=== PATIENT | male | born 1940 | race Caucasian/White ===

== ENCOUNTER 2018-05-01 08:24 | Inpatient (IN) | payer MEDICARE, MEDICAID ==
[~2018-05-01] VITALS: Ht 190.5 cm; Wt 84.8 kg
[2018-05-01] MEDS ORDERED: SODIUM CHLORIDE 0.9% 1,000 ML IV ONE (08:59)
[2018-05-01] MEDS ORDERED: LORAZEPAM 2MG/ML CPJ IV STA (08:59)
[2018-05-01 09:43] LABS: BASOPHILS % 0.4 % (0.0-2.0); EOSINOPHILS % 0.9 % (0.0-5.0); HEMATOCRIT. 44.1 % (42.0-52.0); HEMOGLOBIN. 14.9 g/dL (14.0-18.0); LYMPHOCYTES % 9.4 % (20.0-50.0); MEAN CORPUSCULAR VOLUME 91.6 fL (80.0-94.0); MEAN PLATELET VOLUME 7.9 fl (7.4-10.4); MONOCYTES % 10.6 % (2.0-8.0); NEUTROPHILS % 78.7 % (40.0-76.0); PLATELET 109 x1000/uL (130-400); RED BLOOD CELL COUNT 4.82 mill/uL (4.7-6.1); RED CELL DISTRIBUTION WIDTH 15.3 % (11.6-14.6)
[2018-05-01 09:49] LABS: CHLORIDE 96 mEq/L (98-107)
[2018-05-01 09:53] LABS: ETHANOL BLOOD < 10 mg/dL
[2018-05-01] MEDS ORDERED: DIPHENHYDRAMINE 25MG CAPSULE PO ONE (10:15)
[2018-05-01] MEDS ORDERED: DOCUSATE SODIUM 100MG CAPSULE PO PRN (12:45)
[2018-05-01] MEDS ORDERED: MAGNESIUM/ALUMINUM HYDROXIDE/SIMETHICONE 30ML UDC PO PRN (12:45)
[2018-05-01] MEDS ORDERED: IPRATROPIUM/ALBUTEROL 0.5-3(2.5)MG/3ML NEB INH PRN (12:45)
[2018-05-01] MEDS ORDERED: GUAIFENESIN 200MG/10ML SUGAR FREE UDC PO PRN (12:45)
[2018-05-01] MEDS ORDERED: ONDANSETRON HCL 4MG/2ML INJ IV PRN (12:45)
[2018-05-01] MEDS ORDERED: MVI, ADULT NO.1 10 ML, FOLIC ACID 1 MG in SODIUM CHLORIDE 0.9% 1,000 ML IV NR ×3 (16:30)
[2018-05-01] MEDS ORDERED: THIAMINE HCL 100MG TABLET PO NR (16:30)
[2018-05-01 16:46] LABS: FOLIC ACID (FOLATE) SERUM 16.3 ng/mL (>5.38)
[2018-05-01 19:54] LABS: CLARITY URINE CLOUDY (CLEAR); COLOR URINE DARK YELLOW (YELLOW); KETONES URINE 4+ (NEGATIVE); LEUKOCYTE ESTERASE URINE TRACE (NEGATIVE); NITRITE URINE NEGATIVE (NEGATIVE); OCCULT BLOOD URINE NEGATIVE (NEGATIVE); PROTEIN URINE 2+ (NEGATIVE); SPECIFIC GRAVITY URINE 1.033 (1.005-1.030)
[2018-05-01 20:17] LABS: *AMPHETAMINES SCREEN URINE NEGATIVE (NEGATIVE); *BARBITURATES SCREEN URINE NEGATIVE (NEGATIVE); *BENZODIAZEPINES SCREEN URINE NEGATIVE (NEGATIVE); *COCAINE SCREEN URINE NEGATIVE (NEGATIVE)
[2018-05-01 20:18] LABS: CANNABINOID URINE SCREEN NEGATIVE (NEGATIVE); METHADONE URINE SCREEN NEGATIVE (NEGATIVE); OPIATES URINE SCREEN NEGATIVE (NEGATIVE); PHENCYCLIDINE URINE SCREEN NEGATIVE (NEGATIVE)
[2018-05-01 21:01] LABS: CREATINE KINASE 85 IU/L (39-308)
[2018-05-01 21:04] LABS: CREATINE KINASE MB FRACTION 2.3 ng/mL (0.5-3.6)
[2018-05-01] MEDS ORDERED: NITROGLYCERIN 0.4MG TABLET SL SL PRN (21:32)
[2018-05-01] MEDS ORDERED: KETOROLAC 15MG/ML VIAL IV PRN (21:33)
[2018-05-01] MEDS ORDERED: TRAMADOL 50MG TABLET PO PRN (21:34)
[2018-05-01] MEDS ORDERED: ZOLPIDEM TARTRATE 5MG TABLET PO PRN (21:34)
[2018-05-01] MEDS ORDERED: DEXTROSE 50% WATER 50ML SYRINGE IV PRN (21:35)
[2018-05-01 22:00] VITALS: BP 154/62
[2018-05-01] MEDS: METOPROLOL TARTRATE 25MG TABLET PO SCH (22:33)
[2018-05-01] MEDS: FAMOTIDINE 20MG TABLET PO SCH (22:33)
[2018-05-02] MEDS ORDERED: THIAMINE HCL 100MG TABLET PO NR (01:30)
[2018-05-02 04:00] VITALS: BP 136/92
[2018-05-02] MEDS: BLOOD SUGAR DIAGNOSTIC STRIP TEST SCH ×4 (05:23→20:27)
[2018-05-02 07:51] LABS: CREATINE KINASE MB FRACTION 1.9 ng/mL (0.5-3.6)
[2018-05-02 07:54] LABS: CREATINE KINASE 94 IU/L (39-308)
[2018-05-02] MEDS: INSULIN LISPRO 100 UNITS/ML SUBCUT SCH ×4 (07:55→20:31)
[2018-05-02 08:00] VITALS: BP 172/71
[2018-05-02] MEDS: SUCRALFATE 1 G/10 ML UDC PO SCH ×4 (09:13→20:27)
[2018-05-02] MEDS: ZINC SULFATE 220 MG ( 50 ) CAPSULE PO SCH (09:13)
[2018-05-02] MEDS: ASCORBIC ACID 500 MG TABLET PO SCH ×2 (09:13→20:27)
[2018-05-02] MEDS: METOPROLOL TARTRATE 25MG TABLET PO SCH ×2 (09:13→20:27)
[2018-05-02] MEDS: FAMOTIDINE 20MG TABLET PO SCH ×2 (09:13→20:27)
[2018-05-02] MEDS: CLONIDINE 0.1MG TABLET PO PRN ×2 (09:14→16:33)
[2018-05-02] MEDS: ASPIRIN 325MG EC TABLET PO SCH (09:14)
[2018-05-02] MEDS: ENOXAPARIN 40MG/0.4ML SYR SUBCUT SCH (09:15)
[2018-05-02 12:00] VITALS: BP 128/64
[2018-05-02 16:00] VITALS: BP 160/70
[2018-05-02 20:00] VITALS: BP 133/65
[2018-05-03] VITALS: BP 106/49
[2018-05-03 04:00] VITALS: BP 112/50
[2018-05-03] MEDS: BLOOD SUGAR DIAGNOSTIC STRIP TEST SCH ×4 (06:06→21:00)
[2018-05-03 08:00] VITALS: BP 148/72
[2018-05-03] MEDS: INSULIN LISPRO 100 UNITS/ML SUBCUT SCH ×4 (08:10→21:00)
[2018-05-03] MEDS: ASPIRIN 325MG EC TABLET PO SCH (10:15)
[2018-05-03] MEDS: SUCRALFATE 1 G/10 ML UDC PO SCH ×4 (10:15→21:00)
[2018-05-03] MEDS: ASCORBIC ACID 500 MG TABLET PO SCH ×2 (10:15→21:22)
[2018-05-03] MEDS: ENOXAPARIN 40MG/0.4ML SYR SUBCUT SCH (10:17)
[2018-05-03] MEDS: ZINC SULFATE 220 MG ( 50 ) CAPSULE PO SCH (10:21)
[2018-05-03] MEDS: NICOTINE 14MG PATCH TD SCH (10:21)
[2018-05-03] MEDS: METOPROLOL TARTRATE 25MG TABLET PO SCH ×2 (10:22→21:23)
[2018-05-03] MEDS: FAMOTIDINE 20MG TABLET PO SCH ×2 (10:22→21:22)
[2018-05-03 12:42] VITALS: BP 122/65
[2018-05-03 15:53] VITALS: BP 151/71
[2018-05-03] MEDS: ACETAMINOPHEN 325MG TABLET PO PRN ×2 (17:55→21:23)
[2018-05-03 20:00] VITALS: BP 126/66
[2018-05-04 04:00] VITALS: BP 12/74
[2018-05-04] MEDS: BLOOD SUGAR DIAGNOSTIC STRIP TEST SCH ×2 (07:08→12:24)
[2018-05-04 08:00] VITALS: BP 139/97
[2018-05-04] MEDS: INSULIN LISPRO 100 UNITS/ML SUBCUT SCH ×2 (08:10→12:25)
[2018-05-04] MEDS: SUCRALFATE 1 G/10 ML UDC PO SCH ×2 (08:46→12:24)
[2018-05-04] MEDS: FAMOTIDINE 20MG TABLET PO SCH (08:47)
[2018-05-04] MEDS: ENOXAPARIN 40MG/0.4ML SYR SUBCUT SCH (08:47)
[2018-05-04] MEDS: NICOTINE 14MG PATCH TD SCH (08:47)
[2018-05-04] MEDS: ASCORBIC ACID 500 MG TABLET PO SCH (08:47)
[2018-05-04] MEDS: ASPIRIN 325MG EC TABLET PO SCH (08:47)
[2018-05-04] MEDS: ZINC SULFATE 220 MG ( 50 ) CAPSULE PO SCH (08:47)
[2018-05-04] MEDS: METOPROLOL TARTRATE 25MG TABLET PO SCH (08:59)
[2018-05-04 12:00] VITALS: BP 132/83
[2018-05-04 12:35] VITALS: BP 135/81
== END 2018-05-04 15:55 | DRG 149 ==
LOC: ER 08:24 → EDBEDREQ 09:07 → 7WST 12:30 → EDBEDREQ 12:34 → SUPCPDRO 12:39 → ENRESERV 17:47
PROVIDERS: ADMIT Internal Medicine; ATTEND Internal Medicine
DX: R42 Dizziness and giddiness (principal); M19.90 Unspecified osteoarthritis, unspecified site; F10.20 Alcohol dependence, uncomplicated; E11.9 Type 2 diabetes mellitus without complications; M25.552 Pain in left hip; F17.210 Nicotine dependence, cigarettes, uncomplicated; K76.0 Fatty (change of) liver, not elsewhere classified; Z53.20 Procedure and treatment not carried out because of patient's decision for unspecified reasons; Z96.641 Presence of right artificial hip joint; W01.0XXA Fall on same level from slipping, tripping and stumbling without subsequent striking against object, initial encounter; Y93.89 Activity, other specified; Y92.89 Other specified places as the place of occurrence of the external cause; Y99.8 Other external cause status; Z88.0 Allergy status to penicillin; Z71.41 Alcohol abuse counseling and surveillance of alcoholic; Z71.6 Tobacco abuse counseling; Z59.0 Homelessness
CPT/HCPCS: 36415; 71045; 72192; 73502; 80061; 80305; 80307; 80329; 82550; 82553; 82607; 82746; 82962; 83036; 83880; 84484; 93005; 93306; 93970; 96374; 97162; 97166; 99291; G0482; J1650; J1815; J1885; J2060; J3490; J7030; Q0163